=== PATIENT | female | born 2005 | race Caucasian/White ===

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

== ENCOUNTER 2023-01-25 11:44 | Outpatient (CLI) | payer MEDICAID, SELFPAY ==
--- NOTE | 2023-01-25 11:48 | XR_ITS ---
WS: [id number] Exam: XR ribs LT 2V* [id number] Date/Time of Exam: 01/25/2023 11:56 AM Reason For Exam: rib pain - posteriori No acute LEFT rib fracture or pneumothorax. No pulmonary or pleural reactive changes. The lungs are b ilaterally clear. Normal cardiomediastinal silhouette. IMPRESSION: 1. Negative LEFT rib study.
== END 2023-01-25 11:45 | disposition home or self-care (01) ==
PROVIDERS: PCP Family Medicine; Visit Provider Nurse Practitioner Family
DX: R07.81 Pleurodynia (principal)
CPT/HCPCS: 71100

== ENCOUNTER 2023-06-27 06:36 | Outpatient (CLI) | payer MEDICAID, SELFPAY ==
--- NOTE | 2023-06-27 | USCV_ITS ---
Yadi Evans Age: 17 Gender: F : 2005 Exam Date: 06/27/2023 06:41 Ordering Phys: Anika Trevizo DO Technologist: Ary Argueta [place] [facility] [place] Indication: DIZZINESS [id number] Risk Factors: Previous Vascular Surgery: Right Brachial BP: / Left Brachial BP: / Right Left Velocity (cm/s) Spectral Plaque Velocity (cm/s) Spectral Plaque Syst/Diast Broadening Syst/Diast Broadening 175.00/33.00 Prox CCA 131.00/ 27.00 193.00/36.00 Mid CCA 150.00/ 36.00 157.00/46.00 Distal CCA 104.00/ 31.00 123.00/31.00 Prox ICA 70.00 / 25.00 111.00/40.00 Mid ICA 103.00/ 32.00 101.00/42.00 Distal ICA 77.00 / 35.00 136.00 ECA 78.00 0.80 ICA/CCA 1.00 Antegrade Vertebral Antegrade 73.00/ cm/s 88.00/ 21.00 cm/s Tri Subclavian Tri 240.0 167.0 0 0 FINDINGS Comparison: none available. No significant elevation of systolic or diastolic velocities. Waveforms are normal. Minimal carotid plaque. Antegrade vertebral arteries. CONCLUSIONS Bilateral ICA stenosis less than 50%. Minimal carotid atherosclerosis. Dr. Asmita Lance DO (Electronically Signed) Final Date: 27 June 2023 07:59 S
== END 2023-06-27 06:37 | disposition home or self-care (01) ==
LOC: RAD 06:36
PROVIDERS: PCP Family Medicine; Visit Provider Family Medicine
DX: R42 Dizziness and giddiness (principal); I65.23 Occlusion and stenosis of bilateral carotid arteries
CPT/HCPCS: 93880

== ENCOUNTER 2023-07-05 07:12 | Emergency (ER) | payer MEDICAID, SELFPAY ==
[2023-07-05 07:16] VITALS: BP 155/85; PULSE 97; RESP 16; TEMP 36.7; O2SAT 99; BMI 30.1
--- NOTE | 2023-07-05 07:18 | ECG_ITS ---
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 Measurements Intervals [place] Rate: 78 P: 10 AR: 146 QRS: 50 QRSD: 88 T: 36 QT: 340 QTc: 387 Interpretive Statements SINUS RHYTHM No previous ECG available for comparison Electronically Signed On 07-06-2023 10:46:48 EMERGENCY DEPARTMENT AIDE by Denis Gale M.D. [email or web address] Cameron Groupocean [email or web address] hospitalAppliLogselect medical specialty hospital - [email or web address]/[id number] f
--- NOTE | 2023-07-05 07:25 | W.ED.CHESTPA ---
HPI - Chest Pain General: Chief Complaint: Chest Pain Stated Complaint: chest pains Time Seen by Provider: 07/05/23 07:24 Source: patient Mode of arrival: ambulatory History of Present Illness: 17-year-old female presents emergency room complaining of dizziness and central chest discomfort began after she drank a coffee energy drink. States it is worse when she takes a deep breath no significant past medical history other than anxiety and depression no history of any chronic respiratory illness that she is not on any medications she had a breast reduction a few months ago without complication. MD complaint: chest pain Onset (ago): minute(s) Prior episodes: Yes Pain location: substernal Pain radiation: none Relieving factors: nothing Exacerbating factors: exertion and inspiration Associated symptoms: Deny abdominal pain, diaphoresis, dyspnea, fever(s), leg edema, nausea, palpitations, sense of impending doom, syncope or vomiting Treatment prior to arrival: none Review of Systems Const: Denies: fever(s), chills or diaphoresis Card: Denies: chest pain, palpitations or syncope Resp: Denies: dyspnea GI: Denies: abdominal pain, nausea or vomiting : Denies: dysuria, urinary frequency or urinary urgency Musc: Denies: neck pain or back pain Skin/Breast: Denies: rash PFSH ED PFSH: Medical History Anxiety She did not do well on several anxiety meds, so just stopped. She manages this on her own. 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 Surgical History No pertinent past surgical history Family History Grandmother Breast cancer PGM--unknown age of dx Diabetes maternal grandmother Other Cancer Denies family history of Colon cancer Pancreatic cancer Ovarian cancer Hypertension Uterine cancer Thyroid disease Stroke Social History Substance/Drug Use: never Physical Exam Const: COMMON NORMALS: no acute distress GENERAL APPEARANCE: cooperative and comfortable ORIENTATION/CONSCIOUSNESS: Yes awake, Yes oriented to person, Yes oriented to place and Yes oriented to time HENMT: COMMON NORMALS: normocephalic, atraumatic and hearing grossly normal bilaterally HEAD & SCALP: normocephalic and atraumatic Resp: COMMON NORMALS: normal respiratory effort, No retractions, No use of accessory muscles and clear to auscultation bilaterally AUSCULTATION: clear to auscultation bilaterally Cardio: COMMON NORMALS: regular rate, regular rhythm and No murmurs present (Cardio) RATE: regular rate RHYTHM: regular rhythm GI: COMMON NORMALS: Soft to palpation and No hepatosplenomegaly present AUSCULTATION: Yes normoactive bowel sounds PALPATION: Yes Soft to palpation, No Tenderness to palpation present (GI), No Guarding due to palpation present (GI) and Yes No hepatosplenomegaly present Extremity: COMMON NORMALS: normal to inspection, capillary refill normal, no clubbing, cyanosis or edema, no calf tenderness and no pedal edema Neuro: SENSORIUM/ORIENTATION: Yes oriented to person, Yes oriented to place and Yes oriented to time Skin: COMMON NORMALS: no rashes or lesions noted GENERAL SKIN EXAM: no rashes or lesions noted Course Vital Signs: Vital signs: Vital Signs Temperature 98.0 F 07/05/23 07:16 Pulse Rate 97 07/05/23 07:16 Respiratory Rate 16 07/05/23 07:16 Blood Pressure 155/85 07/05/23 07:16 Pulse Oximetry 99 07/05/23 07:16 Oxygen Delivery Me thod Room Air 07/05/23 07:16 MDM - Chest Pain Medical Decision Making EKG does not show any acute changes troponin negative symptoms atypical for acute coronary syndrome. Some improvement with the GI cocktail patient an episode of hyperventilation during the workup which is resolved with redirection by the nursing staff she is also given Ativan which was helpful. Reviewed findings with is no evidence of pneumothorax pneumonia widening of the mediastinum acute coronary syndrome or pulmonary embolism. Symptoms more consistent with anxiety issues. Refer to [facility]. Medical Records I reviewed the patient's medical records. Lab Data I reviewed the patient's lab results. 07/05/23 07:25 07/05/23 07:25 Radiology Impressions Chest X-Ray 07/05/23 07:29 IMPRESSION: No acute cardiopulmonary abnormality detected on AP portable chest radiograph. Laboratory Results WBC 7.56 10^3/uL (4.5-13.0) 07/05/23 07:25 RBC 4.85 10^6/uL (3.85-5.65) 07/05/23 07:25 Hgb 12.60 g/dL (12.4-14.8) 07/05/23 07:25 Hct 39.3 % (36-47) 07/05/23 07:25 MCV 81.0 fl (85-98) L 07/05/23 07:25 MCH 26.0 pg (27-33) L 07/05/23 07:25 MCHC 32.1 g/dL (30-55) 07/05/23 07:25 RDW 15.6 % (12.1-15.1) H 07/05/23 07:25 Plt Count 223 10^3/cmm (157-399) 07/05/23 07:25 MPV 10.3 fL (7.4-10.4) 07/05/23 07:25 Neut % (Auto) 49.2 % 07/05/23 07:25 Lymph % (Auto) 35.1 % 07/05/23 07:25 [place] % (Auto) 11.9 % 07/05/23 07:25 Eos % (Auto) 2.6 % 07/05/23 07:25 Baso % (Auto) 0.8 % 07/05/23 07:25 Neut # (Auto) 3.72 10^3/uL (1.8-8.0) 07/05/23 07:25 Lymph # (Auto) 2.7 10^3/uL (1.5-6.5) 07/05/23 07:25 [place] # (Auto) 0.9 10^3/uL (0.2-0.9) 07/05/23 07:25 Eos # (Auto) 0.2 10^3/uL (0.0-0.8) 07/05/23 07:25 Baso # (Auto) 0.1 10^3/uL (0.0-0.1) 07/05/23 07:25 Nucleated RBC % (auto) 0 % 07/05/23 07:25 Nucleated RBCs # 0.0 /100WBC 07/05/23 07:25 D-Dimer 0.29 ug/mLFEU (0-0.59) 07/05/23 07:25 Sodium 137 mmol/L (136-145) 07/05/23 07:25 Potassium 4.2 mmol/L (3.5-5.1) 07/05/23 07:25 Chloride 103 mmol/L (98-107) 07/05/23 07:25 Carbon Dioxide 22 mmol/L (22-29) 07/05/23 07:25 Anion Gap 16.2 (5-19) 07/05/23 07:25 BUN 10 mg/dL (6-20) 07/05/23 07:25 Creatinine 0.6 mg/dL (0.5-0.9) 07/05/23 07:25 GFR Calculation 128.8 mL/min (90-130) 07/05/23 07:25 Glucose 102 mg/dL (65-115) 07/05/23 07:25 Calculated Osmolality 283 mOsm/kg (285-295) L 07/05/23 07:25 Calcium 8.9 mg/dL (8.5-10.5) 07/05/23 07:25 Total Bilirubin 0.2 mg/dL (0.15-1.2) 07/05/23 07:25 AST 19 U/L (0-32) 07/05/23 07:25 ALT 21 U/L (0-33) 07/05/23 07:25 Alkaline Phosphatase 132 U/L (35-105) H 07/05/23 07:25 Troponin T Baseline < 6 ng/L (0-10) 07/05/23 07:25 Total Protein 7.5 g/dL (6.6-8.7) 07/05/23 07:25 Albumin 4.2 g/dL (3.5-5.2) 07/05/23 07:25 Globulin 3.3 g/dL (1.3-4.6) 07/05/23 07:25 Lipase 30 U/L (13-60) 07/05/23 07:25 HCG, Qual Negative (Negative) 07/05/23 07:25 All radiology interpretation(s) finalized by discharge Discharge Plan Discharge Patient Disposition: Home Clinical Impression: Anxiety, Acute hyperventilation Condition: Stable Prescriptions: New hydroxyzine HCl 25 mg tablet 25 mg PO Q8H PRN (Reason: anxiety) Qty: 10 0RF No Action prednisone 20 mg tablet 40 mg PO DAILY 5 Days Qty: 10 0RF Discharge Orders: Discharge ED (Routine); Ordered 07/05/23 Ordered By: Leon Llamas Referrals: Anika Trevizo DO [Primary Care Provider] - Discharge Diet: Usual diet Discharge Activity: Increase activity as tolerated Patient Instructions: Opioid Safety, Pain Management Activity Restrictions/Additional Instructions: Thank you for choosing [facility] for your healthcare needs today. Please realize this is an emergency room and that we are providing you with a medical screening exam and this may not be complete and all inclusive of all the testing and or work up that you may need to determine your ailment or severity of your illness. It is very important that you follow up as instructed or that you return to the Emergency Department should you have concerns or if your condition changes or worsens in any way. Recommend you follow-up at [facility] for intake and to establish with a physician there who can help manage your anxiety issues. Workup today for chest pain did not show any emergent conditions. Coding Level of Care Code ED Electric Cutter Operator for Sandoval Haynes
--- NOTE | 2023-07-05 07:29 | XRR_ITS ---
PROCEDURE INFORMATION: Exam: XR Chest Exam date and time: 07/05/2023 7:36 AM Age: 17 years old Clinical indication: Cough and dyspnea; Additional info: Dyspnea/cough TECHNIQUE: Imaging protocol: Radiologic exam of the chest. Views: 1 view. COMPARISON: CR XR ribs LT 2V* [id number] 01/25/2023 11:56 AM FINDINGS: Lungs: No focal consolidation or other acute pulmonary abnormality is seen compared to 01/25/2023. Pleural spaces: No significant pleural fluid. No pneumothorax detected. Heart/Mediastinum: Heart size is stable allowing for the portable exam technique. No pulmonary vascular congestion. Bones/joints: No obvious acute abnormality. XR/XR chest 1V portable [id number] IMPRESSION: No acute cardiopulmonary abnormality detected on AP portable chest radiograph.
[2023-07-05 07:38] LABS: Basophils # 0.1 10^3/uL (0.0-0.1); Basophils % 0.8 %; Eosinophils # 0.2 10^3/uL (0.0-0.8); Eosinophils % 2.6 %; Hematocrit 39.3 % (36-47); Lymphocytes # 2.7 10^3/uL (1.5-6.5); Lymphocytes % 35.1 %; Mean Corpuscular HGB Conc 32.1 g/dL (30-55); Mean Platelet Volume 10.3 fL (7.4-10.4); Monocytes # 0.9 10^3/uL (0.2-0.9); Monocytes % 11.9 %; Neutrophils # 3.72 10^3/uL (1.8-8.0); Neutrophils % 49.2 %; Nucleated Red Blood Cells % 0 %; Platelet Count 223 10^3/cmm (157-399); Red Blood Count 4.85 10^6/uL (3.85-5.65); Red Cell Distribution Width 15.6 % (12.1-15.1); White Blood Count 7.56 10^3/uL (4.5-13.0)
[2023-07-05 07:52] LABS: D Dimer 0.29 ug/mLFEU (0-0.59)
[2023-07-05 07:54] LABS: HCG, Serum Qual Negative (Negative)
[2023-07-05 07:56] LABS: Troponin(5th) Baseline < 6 ng/L (0-10)
[2023-07-05 07:59] LABS: Alanine Aminotransferase 21 U/L (0-33); Albumin Level 4.2 g/dL (3.5-5.2); Alkaline Phosphatase 132 U/L (35-105); Anion Gap 16.2 (5-19); Aspartate Amino Transferase 19 U/L (0-32); Blood Urea Nitrogen 10 mg/dL (6-20); Calcium 8.9 mg/dL (8.5-10.5); Carbon Dioxide 22 mmol/L (22-29); Chloride 103 mmol/L (98-107); Globulin 3.3 g/dL (1.3-4.6); Glomerular Filtration Rate 128.8 mL/min (90-130); Glucose 102 mg/dL (65-115); Lipase 30 U/L (13-60); Osmolality Calculated 283 mOsm/kg (285-295); Potassium 4.2 mmol/L (3.5-5.1); Sodium 137 mmol/L (136-145); Total Bilirubin 0.2 mg/dL (0.15-1.2); Total Protein 7.5 g/dL (6.6-8.7)
[2023-07-05] MEDS: lidocaine 2% viscous 15 ML, aluminum-mag hydrox-simethicon 30 ML, sucralfate oral liq 1 GM PO (08:00)
[2023-07-05] MEDS: LORazepam 1 mg Tablet PO (08:00)
[2023-07-05] MEDS: LORazepam 2 mg/mL INJ 10 mL MDV IVP (09:07)
--- NOTE | 2023-07-05 09:29 | ECG_ITS ---
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 Measurements Intervals [place] Rate: 89 P: -1 GA: 152 QRS: 48 QRSD: 88 T: 35 QT: 343 QTc: 419 Interpretive Statements SINUS RHYTHM Compared to ECG 07/05/2023 07:18:26 No significant changes Electronically Signed On 07-06-2023 10:54:45 FORGING MACHINE OPERATOR by Denis Gale M.D. [email or web address] InternationalMcLemore Investmentsking's daughters medical center [email or web address]/store/OM/[id number]/[id number]
== END 2023-07-05 09:32 | disposition home or self-care (01) ==
PROVIDERS: Emergency Provider Family Medicine; PCP Family Medicine
DX: F41.9 Anxiety disorder, unspecified (principal); R06.4 Hyperventilation
CPT/HCPCS: 71045; 80053; 83690; 84484; 84703; 85025; 85378; 93005; 96374; 99285; J2060

== ENCOUNTER 2023-07-30 05:47 | Emergency (ER) | payer MEDICAID, SELFPAY ==
[2023-07-30 05:52] VITALS: BP 132/74; PULSE 96; RESP 15; TEMP 36.5; O2SAT 98; BMI 30.1
[2023-07-30 05:55] VITALS: BP 126/61; PULSE 93; RESP 14; O2SAT 96
--- NOTE | 2023-07-30 05:59 | ED_ITS ---
HPI - Extremity Problem General: Chief complaint: Extremity Injury, Lower Stated complaint: left ankle injury Time Seen by Provider: 07/30/23 05:55 History of Present Illness: Healthy 17-year-old female who presents the emergency room with ankle pain. She says last night she twisted her ankle. She says it hurt but she thought she was going to be okay because there was a lot of swelling. She does however this morning it still hurts so she came to the emergency room. No obvious swelling or deformity. No bruising. She says it just hurts to walk. She is neurovascularly intact. No other injuries. No chest pain. No shortness of breath. No altered mental status. No fever. No cough. Review of Systems Narrative: Constitutional symptoms: Negative except as documented in HPI. Skin symptoms: Negative except as documented in HPI. Eye symptoms: Negative except as documented in HPI. ENMT symptoms: Negative except as documented in HPI. Respiratory symptoms: Negative except as documented in HPI. Cardiovascular symptoms: Negative except as documented in HPI. Gastrointestinal symptoms: Negative except as documented in HPI. Genitourinary symptoms: Negative except as documented in HPI. Musculoskeletal symptoms: Negative except as documented in HPI. Neurologic symptoms: Negative except as documented in HPI. Psychiatric symptoms: Negative except as documented in HPI. Endocrine symptoms: Negative except as documented in HPI. [facility] ED PFSH: Medical History Anxiety She did not do well on several anxiety meds, so just stopped. She manages this on her own. No pertinent past medical history neghx: htn,dm,thyroid,dvt/pe PCP: Jay Harley NP Depression was managed with medication; came off the meds in 02/2020. Surgical History No pertinent past surgical history Family History Grandmother Breast cancer PGM--unknown age of dx Diabetes maternal grandmother Other Cancer Denies family history of Colon cancer Pancreatic cancer Ovarian cancer Hypertension Uterine cancer Thyroid disease Stroke Social History Substance/Drug Use: never Physical Exam Narrative: EXAM NARRATIVE: General: Alert, no acute distress. Skin: warm and dry Head: Normocephalic Neck: Trachea midline Eye: Extraocular movements are intact. Ears, nose, mouth and throat: Oral mucosa moist Respiratory: Respirations are non-labored Musculoskeletal: Normal ROM, no deformity, neurovascularly intact. She has pain in her left ankle with standing and movement. Neurological: Alert and oriented to person, place, time, and situation, No focal neurological deficit observed. Psychiatric: Cooperative, appropriate mood & affect. Course Vital Signs: Vital signs: Vital Signs Temperature 97.7 F 07/30/23 05:52 Pulse Rate 93 07/30/23 05:55 Respiratory Rate 14 07/30/23 05:55 Blood Pressure 126/61 07/30/23 05:55 Pulse Oximetry 96 07/30/23 05:55 Oxygen Delivery Me thod Room Air 07/30/23 05:55 MDM - Extremity (Nontraumatic) Medical Decision Making Medical decision making: Differential diagnosis including but not limited to and based on the above HPI, review of systems and physical exam: Concern for ankle strain versus fracture. Orders to evaluate differential diagnosis: Plain films of the left ankle X-ray of the left ankle: There is no fracture. No dislocation. No soft tissue swelling. This was reviewed and interpreted by myself the emergency room physician. Reexamination: Patient remained stable. Ankle still with some pain but still neurovascularly intact. No increased work of breathing. No altered mental status. XR interpretation done by ED provider, pending radiology final review Other Data - Discharged home - Discussed plan with patient. Answered any questions. - Evaluation and treatment of this problem were appropriate in the emergency setting. Discharge Plan Discharge Patient Disposition: Home Clinical Impression: Ankle sprain and strain Condition: Stable Prescriptions: No Action prednisone 20 mg tablet 40 mg PO DAILY 5 Days Qty: 10 0RF hydroxyzine HCl 25 mg tablet 25 mg PO Q8H PRN (Reason: anxiety) Qty: 10 0RF Discharge Orders: Discharge ED (Routine); Ordered 07/30/23 Ordered By: Mary Jo Blood Referrals: Anika Trevizo DO [Primary Care Provider] - (You have been screened and evaluated and felt safe for discharge. Health conditions do change or evolve sometimes and as such it is important that you follow up with your Primary Doctor to be re checked, 3-5 days is a general good time frame for follow up. You are always welcome to return to the ED for re assessment if your symptoms are worsening or you have new concerns) Discharge Diet: Usual diet Discharge Activity: Increase activity as tolerated Patient Instructions: Ankle Sprain (ED), Ice Pack Application (ED) Coding Level of Care Code ED Brand Activation Manager for Sandoval Haynes
--- NOTE | 2023-07-30 05:59 | XRR_ITS ---
PROCEDURE INFORMATION: Exam: XR Left Ankle Exam date and time: 07/30/2023 6:08 AM Age: 17 years old Clinical indication: Injury or trauma; Fall; Blunt trauma; Ankle; Left; Additional info: Traumatic ankle pain TECHNIQUE: Imaging protocol: Radiologic exam of the left ankle. Views: 3 or more views. COMPARISON: No relevant prior studies available. FINDINGS: Bones/joints: No acute bony injury or malalignment in the visualized left ankle. Soft tissues: No radiopaque foreign body. XR/XR ankle LT min 3V* [id number] IMPRESSION: No acute bony injury or malalignment in the visualized left ankle.
[2023-07-30 06:50] VITALS: BP 118/66; RESP 14; O2SAT 97
== END 2023-07-30 06:51 | disposition home or self-care (01) ==
PROVIDERS: Emergency Provider Emergency Medicine; PCP Family Medicine
DX: S93.402A Sprain of unspecified ligament of left ankle, initial encounter (principal); S96.912A Strain of unspecified muscle and tendon at ankle and foot level, left foot, initial encounter; X50.1XXA Overexertion from prolonged static or awkward postures, initial encounter
CPT/HCPCS: 73610; 99284

== ENCOUNTER 2023-10-10 14:42 | Emergency (ER) | payer MEDICAID, SELFPAY ==
[2023-10-10 14:48] VITALS: BP 139/84; PULSE 83; RESP 18; TEMP 36.6; O2SAT 97; BMI 31.5
--- NOTE | 2023-10-10 15:15 | ED_ITS ---
HPI - Extremity Problem General: Chief complaint: Extremity Injury, Upper Stated complaint: left arm pain, left side head numb Time Seen by Provider: 10/10/23 14:54 Source: patient Mode of arrival: ambulatory Limitations: no limitations History of Present Illness: Patient is a 18-year-old female presents to ED today with a complaint of a left upper extremity injury that she sustained while lifting. Patient states just earlier today she was lifting a heavy door when she felt something immediately pull in her left arm/left shoulder. She states since that time her arm and neck have felt foggy . Patient states her pain is worse with movement of the shoulder. She feels like she may have pulled something . Patient denies numbness, tingling, loss of sensation. She is not having any acute neurologic deficits. She has not noticed any swelling to the extremity. MD Complaint: extremity pain and joint pain Onset (ago): hour(s) Pain Consistency: constant Location: left and upper extremity Radiation: none Exacerbating factors: range of motion Associated symptoms: Reports no associated symptoms; Deny rash Review of Systems Eyes: Denies: change in vision ENMT: Denies: tinnitus GI: Denies: nausea or vomiting Musc: Reports: neck pain, extremity pain and joint pain; Denies: back pain, extremity swelling, joint swelling, joint redness, joint warmth or limited range of motion Skin/Breast: Denies: rash Neuro: Denies: numbness in extremities, weakness in extremities, sensory changes, dizziness or Slurred speech present [facility] ED PFSH: Medical History Anxiety She did not do well on several anxiety meds, so just stopped. She manages this on her own. No pertinent past medical history neghx: htn,dm,thyroid,dvt/pe PCP: Jay Harley NP Depression was managed with medication; came off the meds in 02/2020. Surgical History No pertinent past surgical history Family History Grandmother Breast cancer PGM--unknown age of dx Diabetes maternal grandmother Other Cancer Denies family history of Colon cancer Pancreatic cancer Ovarian cancer Hypertension Uterine cancer Thyroid disease Stroke Social History Substance/Drug Use: never Physical Exam Const: COMMON NORMALS: no acute distress, patient oriented x3, no limitations, healthy appearing, alert and well nourished ORIENTATION/CONSCIOUSNESS: Yes awake, Yes oriented to person, Yes oriented to place and Yes oriented to time HENMT: COMMON NORMALS: normocephalic and atraumatic HEAD & SCALP: normal to inspection, normocephalic and atraumatic FACE & SINUS: normal facial exam and face symmetric MOUTH: tongue normal Eye: COMMON NORMALS: Equal, round and reactive pupils present and EOMs intact bilaterally GENERAL EYE: appearance normal, both eyes and all related structures and normal light reflex PUPIL: Yes Equal, round and reactive pupils present DIRECT OPHTHALMOSCOPY: Yes normal light reflex Neck/C-Spine: COMMON NORMALS: full ROM, no lymphadenopathy, no meningeal signs and No carotid bruits GENERAL: Yes normal visual inspection CERVICAL SPINE: Yes cervical ROM normal, No Cervical spine tenderness, No step off deformity and Yes Trapezius muscle tenderness left Extremity: COMMON NORMALS: full ROM, capillary refill normal, no joint enlargement and no clubbing, cyanosis or edema GENERAL: Yes normal exam except as noted LEFT UPPER EXTREMITY: Yes shoulder joint (pain reproducible with certain movements of shoulder and palpation) Left shoulder joint: Yes inspection (normal gross inspection), Yes palpation (TTP posterior shoulder; trapezius muscle tenderness), Yes ROM (normal) and Yes neurovascular exam (normal) Neuro: COMMON NORMALS: patient oriented x3, moves all extremities, no focal motor deficits and no sensory deficits noted SENSORIUM/ORIENTATION: Yes alert, Yes oriented to person, Yes oriented to place and Yes oriented to time MENINGEAL SIGNS: Yes no meningeal signs Course Vital Signs: Vital signs: Vital Signs Temperature 98 F 10/10/23 14:48 Pulse Rate 83 10/10/23 14:48 Respiratory Rate 18 10/10/23 14:48 Blood Pressure 139/84 10/10/23 14:48 Pulse Oximetry 97 10/10/23 14:48 Oxygen Delivery Me thod Room Air 10/10/23 14:48 MDM - Extremity (Nontraumatic) Medical Decision Making Patient is a 18-year-old female here with complaints of left neck and shoulder pain following lifting a heavy door. Her pain is reproducible with palpation certain areas in her shoulder as well as certain movements. She does maintain full range of motion of the shoulder. I do not have any concern at this time for bony injury. Extremity is neurovascularly intact. I do not have any concern for other ominous etiology such as a cerebral/cervical dissection. She has no Arie syndrome, no cranial nerve palsies, no pulsatile tinnitus, no other neurologic deficits. Patient be treated with anti-inflammatories as well as other conservative therapies at home such as ice/heat. Recommend follow-up with primary care in 1 to 2 weeks if symptoms do not seem to be improving. Return ED precautions given. No radiology studies performed this visit Discharge Plan Discharge Patient Disposition: Home Clinical Impression: Muscle strain of left shoulder region Qualifiers: Encounter type: initial encounter Qualified Code(s): S46.912A - Strain of unspecified muscle, fascia and tendon at shoulder and upper arm level, left arm, initial encounter Condition: Stable Prescriptions: New ibuprofen 800 mg tablet 800 mg PO Q8H PRN (Reason: pain) Qty: 20 0RF No Action sertraline [Zoloft] 50 mg tablet 50 mg PO DAILY ondansetron 4 mg tablet,disintegrating 4 mg PO Q6H PRN (Reason: nausea and vomiting) Qty: 10 0RF hydroxyzine HCl 25 mg tablet 25 mg PO Q8H PRN (Reason: anxiety) Qty: 10 0RF Discharge Orders: Discharge ED (Routine); Ordered 10/10/23 Ordered By: Sammi Cornell Referrals: Anika Trevizo DO [Primary Care Provider] - Patient Instructions: Muscle Strain (DC) Coding Level of Care Code ED Tube Builder Airplane for Sandoval Haynes
== END 2023-10-10 15:41 | disposition home or self-care (01) ==
PROVIDERS: Emergency Provider Physician Assistant; PCP Family Medicine
DX: S46.912A Strain of unspecified muscle, fascia and tendon at shoulder and upper arm level, left arm, initial encounter (principal); X50.0XXA Overexertion from strenuous movement or load, initial encounter
CPT/HCPCS: 99281

== ENCOUNTER → 2023-11-08 10:23 | Outpatient (BNVA) | payer OTHER, MEDICAID, SELFPAY | PROVIDERS: PCP Family Medicine; Visit Provider Registered Nurse Neonatal Intensive Care | DX: J02.9 Acute pharyngitis, unspecified (principal); H66.003 Acute suppurative otitis media without spontaneous rupture of ear drum, bilateral | CPT/HCPCS: 87880 ==

== ENCOUNTER → 2024-02-24 18:05 | Outpatient (BNVA) | payer MEDICAID, SELFPAY | PROVIDERS: PCP Family Medicine; Visit Provider Registered Nurse Neonatal Intensive Care | DX: R39.9 Unspecified symptoms and signs involving the genitourinary system (principal) | CPT/HCPCS: 81000 ==

== ENCOUNTER 2024-04-05 12:37 | Outpatient (CLI) | payer MEDICAID, SELFPAY ==
--- NOTE | 2024-04-05 12:52 | XR_ITS ---
WS: [id number] Exam: XR lumbar spine 2-3V* [id number] Date/Time of Exam: 04/05/2024 12:54 PM Reason For Exam: CHRONIC LUMBAR BACK PAIN; SCIATICA No fracture. Disc spaces are preserved. Posterior elements are intact. Slight levoscoliosis that may be positional. XR/XR lumbar spine 2-3V* [id number] IMPRESSION: 1. Normal lumbar spine study.
== END 2024-04-05 12:38 | disposition home or self-care (01) ==
PROVIDERS: PCP Family Medicine; Visit Provider Nurse Practitioner Family
DX: M54.59 Other low back pain (principal)
CPT/HCPCS: 72100

== ENCOUNTER → 2024-04-20 12:28 | Outpatient (BNVA) | payer MEDICAID, SELFPAY | PROVIDERS: PCP Family Medicine; Visit Provider Registered Nurse Neonatal Intensive Care | DX: R05.9 Cough, unspecified (principal); J02.9 Acute pharyngitis, unspecified | CPT/HCPCS: 87071; 87400; 87426; 87880 ==

== ENCOUNTER 2024-05-01 16:27 | Emergency (ER) | payer MEDICAID, SELFPAY ==
[2024-05-01 16:36] VITALS: BMI 34.8
[2024-05-01 17:59] LABS: Basophils # 0.1 10^3/uL (0.0-0.1); Basophils % 0.8 %; Eosinophils # 0.3 10^3/uL (0.0-0.8); Eosinophils % 2.8 %; Hematocrit 42.6 % (36-47); Lymphocytes # 3.1 10^3/uL (1.5-6.5); Lymphocytes % 28.3 %; Mean Corpuscular HGB Conc 31.9 g/dL (30-55); Mean Corpuscular Volume 84.7 fl (85-98); Mean Platelet Volume 10.4 fL (7.4-10.4); Monocytes # 1.1 10^3/uL (0.2-0.9); Monocytes % 10.1 %; Neutrophils # 6.24 10^3/uL (1.8-8.0); Neutrophils % 57.6 %; Nucleated Red Blood Cells % 0 %; Platelet Count 258 10^3/cmm (157-399); Red Blood Count 5.03 10^6/uL (3.85-5.65); Red Cell Distribution Width 14.9 % (12.1-15.1); White Blood Count 10.84 10^3/uL (4.5-13.0)
[2024-05-01 18:00] LABS: Bilirubin Urine Negative (Negative); Blood Urine Negative (Negative); Glucose Urine UA Negative (Normal); Ketones Urine Negative (Negative); Leukocyte Esterase Urine Negative (Negative); Nitrate Urine Negative (Negative); Protein Urine Trace (Negative); Specific Gravity, Urine 1.024 (1.005-1.030); Urine Appearance Cloudy (CLEAR); Urine Color Yellow (Yellow); pH Urine 8.5 (5-7)
[2024-05-01 18:03] LABS: Add Urine Microscopic? YES; Bacteria Urine 1+ /hpf; Hyaline Casts Urine 0-4 /lpf
[2024-05-01 18:14] LABS: Alanine Aminotransferase 29 U/L (0-33); Albumin Level 4.1 g/dL (3.5-5.2); Alkaline Phosphatase 137 U/L (35-105); Anion Gap 14.9 (5-19); Aspartate Amino Transferase 23 U/L (0-32); Blood Urea Nitrogen 9 mg/dL (6-20); Calcium 9.2 mg/dL (8.5-10.5); Carbon Dioxide 22 mmol/L (22-29); Chloride 104 mmol/L (98-107); Creatinine Clr Calc Pharmacy 241.3694; Globulin 3.7 g/dL (1.3-4.6); Glomerular Filtration Rate 157.3 mL/min (90-130); Glucose 85 mg/dL (65-115); Lipase 23 U/L (13-60); Osmolality Calculated 282 mOsm/kg (285-295); Potassium 3.9 mmol/L (3.5-5.1); Sodium 137 mmol/L (136-145); Total Bilirubin 0.2 mg/dL (0.15-1.2); Total Protein 7.8 g/dL (6.6-8.7)
[2024-05-01 18:25] LABS: HCG, Serum Qual Negative (Negative)
--- NOTE | 2024-05-01 19:13 | CTR_ITS ---
PROCEDURE INFORMATION: Exam: CT Abdomen And Pelvis With Contrast Exam date and time: 05/01/2024 7:43 PM Age: 18 years old Clinical indication: Abdominal pain; TECHNIQUE: Imaging protocol: Computed tomography of the abdomen and pelvis with contrast. Radiation optimization: All CT scans at this facility use at least one of these dose optimization techniques: automated exposure control; mA and/or kV adjustment per patient size (includes targeted exams where dose is matched to clinical indication); or iterative reconstruction. Contrast material: OMNI 350; Contrast volume: 100 ml; Contrast route: INTRAVENOUS (IV); COMPARISON: CT abdomen pelvis w con* [id number] 04/27/2020 11:29 AM RADIATION DOSE METRICS: Total DLP (mGy-cm): 1075.07 FINDINGS: Liver: There is a diffuse decrease in hepatic parenchymal density, consistent with fatty infiltration. Gallbladder and biliary ducts: Normal. No calcified stones. No ductal dilation. Pancreas: Normal. No ductal dilation. Spleen: Normal. No splenomegaly. Adrenal glands: Normal. No mass. Kidneys and ureters: Normal. No hydronephrosis. Stomach and bowel: There is mucosal thickening of the terminal ileum with minimal haziness in the adjacent mesenteric fat, consistent with a nonspecific enteritis. Appendix: A normal appendix is identified. Intraperitoneal space: See Stomach and bowel finding. Vasculature: Unremarkable. No abdominal aortic aneurysm. Lymph nodes: Unremarkable. No enlarged lymph nodes. Urinary bladder: Unremarkable as visualized. Reproductive: Unremarkable as visualized. Bones/joints: Unremarkable. No acute fracture. Soft tissues: Unremarkable. CT/CT abdomen pelvis w con* [id number] IMPRESSION: Findings as stated above are consistent with a nonspecific enteritis involving the terminal ileum.
--- NOTE | 2024-05-01 19:15 | ED_ITS ---
HPI - Abdominal Pain 2 General: Chief Complaint: Abdominal Pain Stated Complaint: Right side abd pain, feels like passing out Time Seen by Provider: 05/01/24 19:04 Source: patient Mode of arrival: ambulatory Limitations: no limitations History of Present Illness: 18-year-old female states been having ri ght lower quadrant pain throughout the day states radiates to right flank states pain is worse with movement and palpation she rates the pain a 5 out of 10 currently it is improved with rest she denies any dysuria or vaginal bleeding no previous abdominal surgeries has had a history of ovarian cyst in the past. Associated Symptoms: Denies chills, diarrhea, dysuria, fever(s), nausea and vomiting Related Data Date of Last Menstrual Period: 04/17/24 Home Medications Medication Instructions Recorded Confirmed sertraline 50 mg tablet (Zoloft) 50 mg PO DAILY 08/20/23 04/20/24 Previous Rx's Medication Instructions Recorded hydrocodone 5 mg-acetaminophen 325 1 tab PO Q6H PRN pain #14 tabs 05/01/24 mg tablet ondansetron 4 mg disintegrating 4 mg PO Q6H PRN nausea and 05/01/24 tablet vomiting #14 tabs Allergies Allergy/AdvReac Type Severity Reaction Status Date / Time No Known Allergies Allergy Verified 05/01/24 16:39 Review of Systems 2 Const: Denies: fever(s), chills, body aches or change in appetite ENMT: Denies: throat pain or dental pain Card: Denies: chest pain Resp: Denies: dyspnea GI: Reports: abdominal pain; Denies: nausea, vomiting or diarrhea : Denies: dysuria Musc: Denies: neck pain or back pain Skin/Breast: Denies: rash Neuro: Denies: headache(s) PFSH ED 2 PFSH: Medical History Anxiety She did not do well on several anxiety meds, so just stopped. She manages this on her own. No pertinent past medical history neghx: htn,dm,thyroid,dvt/pe PCP: Jay Harley NP Depression was managed with medication; came off the meds in 02/2020. Surgical History No pertinent past surgical history Family History Grandmother Breast cancer PGM--unknown age of dx Diabetes maternal grandmother Other Cancer Denies family history of Colon cancer Pancreatic cancer Ovarian cancer Hypertension Uterine cancer Thyroid disease Stroke Social History Smoking and tobacco/nicotine status: never used tobacco/nicotine Substance/Drug Use: never Female Reproductive History: Date of last menstrual period: 04/17/24 Physical Exam 2 Const: COMMON NORMALS: no acute distress, patient oriented x3 and healthy appearing HENMT: COMMON NORMALS: normocephalic and atraumatic HEAD & SCALP: n ormocephalic and atraumatic Neck/C-Spine: COMMON NORMALS: full ROM and supple Chest: COMMONS NORMALS: normal inspection of the chest Resp: COMMON NORMALS: normal respiratory effort Cardio: COMMON NORMALS: regular rate, regular rhythm and No murmurs present (Cardio) RATE: regular rate RHYTHM: regular rhythm GI: COMMON NORMALS: Normal to inspection, nondistended, normoactive bowel sounds present, Soft to palpation and no masses PALPATION: Yes Soft to palpation and Yes Tenderness to palpation present (GI) Details: RLQ Extremity: COMMON NORMALS: normal to inspection and full ROM Neuro: COMMON NORMALS: patient oriented x3, moves all extremities and no focal motor deficits Psych: COMMON NORMALS: mental status grossly normal, Normal thought process present and cooperative THOUGHT PROCESS: Normal thought process present Skin: COMMON NORMALS: no rashes or lesions noted and no wounds GENERAL SKIN EXAM: no rashes or lesions noted Course 2 Vital Signs: Vital signs: Vital Signs Pulse Rate 86 05/01/24 20:30 Respiratory Rate 18 05/01/24 20:05 Blood Pressure 137/89 05/01/24 20:30 Pulse Oximetry 98 05/01/24 20:30 Oxygen Delivery Me thod Room Air 05/01/24 20:30 MDM - Abdominal Pain Medical Decision Making Patient presents for abdominal pain CT shows an enteritis no signs appendicitis blood works normal pain here is improved abdominal exam discharge benign she is stable for discharge we will prescribe her nausea medicine pain meds she is follow-up with PCP. Medical Records I reviewed the patient's medical records. Lab Data I reviewed the patient's lab results. 05/01/24 17:36 05/01/24 17:36 Labs/Radiology: Radiology Impressions Abdomen/Pelvis CT 05/01/24 19:13 IMPRESSION: Findings as stated above are consistent with a nonspecific enteritis involving the terminal ileum. Laboratory Results WBC 10.84 10^3/uL (4.5-13.0) 05/01/24 17:36 RBC 5.03 10^6/uL (3.85-5.65) 05/01/24 17:36 Hgb 13.60 g/dL (12.4-14.8) 05/01/24 17:36 Hct 42.6 % (36-47) 05/01/24 17:36 MCV 84.7 fl (85-98) L 05/01/24 17:36 MCH 27.0 pg (27-33) 05/01/24 17:36 MCHC 31.9 g/dL (30-55) 05/01/24 17:36 RDW 14.9 % (12.1-15.1) 05/01/24 17:36 Plt Count 258 10^3/cmm (157-399) 05/01/24 17:36 MPV 10.4 fL (7.4-10.4) 05/01/24 17:36 Neut % (Auto) 57.6 % 05/01/24 17:36 Lymph % (Auto) 28.3 % 05/01/24 17:36 [place] % (Auto) 10.1 % 05/01/24 17:36 Eos % (Auto) 2.8 % 05/01/24 17:36 Baso % (Auto) 0.8 % 05/01/24 17:36 Neut # (Auto) 6.24 10^3/uL (1.8-8.0) 05/01/24 17:36 Lymph # (Auto) 3.1 10^3/uL (1.5-6.5) 05/01/24 17:36 [place] # (Auto) 1.1 10^3/uL (0.2-0.9) H 05/01/24 17:36 Eos # (Auto) 0.3 10^3/uL (0.0-0.8) 05/01/24 17:36 Baso # (Auto) 0.1 10^3/uL (0.0-0.1) 05/01/24 17:36 Nucleated RBC % (auto) 0 % 05/01/24 17:36 Nucleated RBCs # 0.0 /100WBC 05/01/24 17:36 Sodium 137 mmol/L (136-145) 05/01/24 17:36 Potassium 3.9 mmol/L (3.5-5.1) 05/01/24 17:36 Chloride 104 mmol/L (98-107) 05/01/24 17:36 Carbon Dioxide 22 mmol/L (22-29) 05/01/24 17:36 Anion Gap 14.9 (5-19) 05/01/24 17:36 BUN 9 mg/dL (6-20) 05/01/24 17:36 Creatinine 0.5 mg/dL (0.5-0.9) 05/01/24 17:36 GFR Calculation 157.3 mL/min (90-130) H 05/01/24 17:36 Glucose 85 mg/dL (65-115) 05/01/24 17:36 Calculated Osmolality 282 mOsm/kg (285-295) L 05/01/24 17:36 Calcium 9.2 mg/dL (8.5-10.5) 05/01/24 17:36 Total Bilirubin 0.2 mg/dL (0.15-1.2) 05/01/24 17:36 AST 23 U/L (0-32) 05/01/24 17:36 ALT 29 U/L (0-33) 05/01/24 17:36 Alkaline Phosphatase 137 U/L (35-105) H 05/01/24 17:36 Total Protein 7.8 g/dL (6.6-8.7) 05/01/24 17:36 Albumin 4.1 g/dL (3.5-5.2) 05/01/24 17:36 Globulin 3.7 g/dL (1.3-4.6) 05/01/24 17:36 Lipase 23 U/L (13-60) 05/01/24 17:36 HCG, Qual Negative (Negative) 05/01/24 17:36 Urine Color Yellow (Yellow) 05/01/24 17:30 Urine Appearance Cloudy (CLEAR) A 05/01/24 17:30 Urine pH 8.5 (5-7) A 05/01/24 17:30 Ur Specific [place] 1.024 (1.005-1.030) 05/01/24 17:30 Urine Protein Trace (Negative) A 05/01/24 17:30 Urine Glucose (UA) Negative (Normal) 05/01/24 17:30 Urine Ketones Negative (Negative) 05/01/24 17:30 Urine Blood Negative (Negative) 05/01/24 17:30 Urine Nitrate Negative (Negative) 05/01/24 17:30 Urine Bilirubin Negative (Negative) 05/01/24 17:30 Urine Urobilinogen 1.0 mg/dL (Negative) 05/01/24 17:30 Ur Leukocyte Esterase Negative (Negative) 05/01/24 17:30 Urine RBC 3-5 /hpf (0-2) 05/01/24 17:30 Urine WBC 6-10 /hpf (0-5) 05/01/24 17:30 Ur Squamous Epith Cells 6-10 /hpf (0-5) 05/01/24 17:30 Amorphous Sediment Not Reportable 05/01/24 17:30 Urine Bacteria 1+ /hpf (NONE) H 05/01/24 17:30 Hyaline Casts 0-4 /lpf H 05/01/24 17:30 All radiology interpretation(s) finalized by discharge Discharge Plan Discharge Patient Disposition: Home Clinical Impression: Abdominal pain Condition: Stable Prescriptions: New hydrocodone-acetaminophen 5-325 mg tablet 1 tab PO Q6H PRN (Reason: pain) Qty: 14 0RF ondansetron 4 mg tablet,disintegrating 4 mg PO Q6H PRN (Reason: nausea and vomiting) Qty: 14 0RF No Action sertraline [Zoloft] 50 mg tablet 50 mg PO DAILY Discharge Orders: Discharge ED (Routine); Ordered 05/01/24 Ordered By: Sonali Bowens Referrals: Anika Trevizo DO [Primary Care Provider] - 4-7 days Discharge Diet: Advance as tolerated Discharge Activity: Resume usual activity Patient Instructions: Abdominal Pain (ED), Enteritis (ED) Coding Level of Care Code 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
[2024-05-01] MEDS: iohexol 350 mg/mL 500 mL Btl (per mL) IV (19:47)
[2024-05-01] MEDS: ondansetron 2 mg/ML SDV 2 mL 4 MG IVP (19:57)
[2024-05-01 20:00] VITALS: BP 127/80; PULSE 90; O2SAT 99
[2024-05-01 20:05] VITALS: RESP 18; O2SAT 98
[2024-05-01] MEDS: morphine 4 mg/mL SDV 1 mL IVP (20:05)
[2024-05-01 20:07] VITALS: BP 132/87; PULSE 88; O2SAT 99
[2024-05-01 20:30] VITALS: BP 137/89; PULSE 86; O2SAT 98
[2024-05-01 21:23] VITALS: BP 137/89; PULSE 93; RESP 18; O2SAT 97
== END 2024-05-01 21:25 | disposition home or self-care (01) ==
PROVIDERS: Emergency Provider Emergency Medicine; PCP Family Medicine
DX: R10.31 Right lower quadrant pain (principal)
CPT/HCPCS: 36415; 74177; 80053; 81001; 83690; 84703; 85025; 96374; 96375; 99285; J2270; J2405

== ENCOUNTER 2024-05-28 11:35 | Outpatient (RCR) | payer MEDICAID, SELFPAY | END 2024-06-14 23:59 | disposition home or self-care (01) | LOC: SPT 11:35 | PROVIDERS: Visit Provider Nurse Practitioner Family | DX: M54.50 Low back pain, unspecified (principal); G89.29 Other chronic pain | CPT/HCPCS: 97110; 97161 ==

== ENCOUNTER 2024-05-31 20:37 | Emergency (ER) | payer MEDICAID, SELFPAY ==
[2024-05-31 20:44] VITALS: BP 123/81; PULSE 62; RESP 16; TEMP 36.6; O2SAT 97; BMI 33.0
[2024-05-31 21:40] LABS: Basophils # 0.1 10^3/uL (0.0-0.1); Eosinophils # 0.2 10^3/uL (0.0-0.8); Eosinophils % 2.5 %; Hematocrit 43.6 % (36-47); Lymphocytes % 36.7 %; Mean Corpuscular Hemoglobin 27.2 pg (27-33); Mean Corpuscular Volume 87.7 fl (85-98); Mean Platelet Volume 11.1 fL (7.4-10.4); Monocytes # 0.6 10^3/uL (0.2-0.9); Monocytes % 7.4 %; Neutrophils # 4.24 10^3/uL (1.8-8.0); Neutrophils % 52.2 %; Nucleated Red Blood Cells % 0 %; Platelet Count 215 10^3/cmm (157-399); Red Blood Count 4.97 10^6/uL (3.85-5.65); Red Cell Distribution Width 14.6 % (12.1-15.1); White Blood Count 8.12 10^3/uL (4.5-13.0)
[2024-05-31 22:29] LABS: Alanine Aminotransferase 44 U/L (0-33); Albumin Level 4.4 g/dL (3.5-5.2); Alkaline Phosphatase 139 U/L (35-105); Anion Gap 19.9 (5-19); Aspartate Amino Transferase 33 U/L (0-32); Blood Urea Nitrogen 15 mg/dL (6-20); Calcium 9.7 mg/dL (8.5-10.5); Carbon Dioxide 19 mmol/L (22-29); Chloride 104 mmol/L (98-107); Creatinine Clr Calc Pharmacy 195.5718; Globulin 3.6 g/dL (1.3-4.6); Glomerular Filtration Rate 127.5 mL/min (90-130); Glucose 89 mg/dL (65-115); Osmolality Calculated 288 mOsm/kg (285-295); Potassium 3.9 mmol/L (3.5-5.1); Sodium 139 mmol/L (136-145); Total Bilirubin 0.2 mg/dL (0.15-1.2)
--- NOTE | 2024-06-01 00:25 | ED_ITS ---
HPI - GI Bleed 2 General: Chief complaint: GI Bleed Stated complaint: severe rectal bleeding Time Seen by Provider: 06/01/24 00:02 History of Present Illness: Patient presents to the ER with complaints of rectal bleeding, dizziness and tingling. Says he was seen a month ago and diagnosed with enteritis. She had 1 episode of rectal bleeding since then it was very mild. Patient today had another after episode of rectal bleeding he says it was more moderate in nature this was bleeding bright red blood on her toilet paper as well as in her stool. There was no if no black tarry blood. Patient did not have any abdominal pain during this but she did have some outer and internal rectal type pain. Patient is not on any type of anticoagulation has never had any bleeding problems in the past. Related Data Home Medications Medication Instructions Recorded Confirmed sertraline 50 mg tablet (Zoloft) 50 mg PO DAILY 08/20/23 04/20/24 Previous Rx's Medication Instructions Recorded hydrocodone 5 mg-acetaminophen 325 1 tab PO Q6H PRN pain #14 tabs 05/01/24 mg tablet ondansetron 4 mg disintegrating 4 mg PO Q6H PRN nausea and 05/01/24 tablet vomiting #14 tabs Allergies Allergy/AdvReac Type Severity Reaction Status Date / Time No Known Allergies Allergy Verified 05/01/24 16:39 Review of Systems 2 General: Reports: 10 or more systems reviewed and unremarkable except in HPI and below PFSH ED 2 PFSH: Medical History Anxiety She did not do well on several anxiety meds, so just stopped. She manages this on her own. No pertinent past medical history neghx: htn,dm,thyroid,dvt/pe PCP: Jay Harley NP Depression was managed with medication; came off the meds in 02/2020. Surgical History No pertinent past surgical history Family History Grandmother Breast cancer PGM--unknown age of dx Diabetes maternal grandmother Other Cancer Denies family history of Colon cancer Pancreatic cancer Ovarian cancer Hypertension Uterine cancer Thyroid disease Stroke Social History (Reviewed 06/01/24 @ 00:26 by BRADFORD Rivers Smoking and tobacco/nicotine status: never used tobacco/nicotine Substance/Drug Use: never Female Reproductive History: Date of last menstrual period: 05/17/24 Physical Exam 2 Const: COMMON NORMALS: no acute distress, average body habitus, patient oriented x3, no limitations, healthy appearing, alert and well nourished HENMT: COMMON NORMALS: normocephalic, atraumatic, hearing grossly normal bilaterally, external ears normal, Normal external nose present and moist oral mucous membranes HEAD & SCALP: normocephalic and atraumatic NOSE: Normal external nose present EXTERNAL EAR: Yes external ears normal Eye: COMMON NORMALS: Equal, round and reactive pupils present, EOMs intact bilaterally, conjunctivae normal and no scleral icterus CONJUNCTIVA: Yes conjunctivae normal PUPIL: Yes Equal, round and reactive pupils present Neck/C-Spine: COMMON NORMALS: full ROM, no lymphadenopathy, supple, no meningeal signs, no JVD and Thyroid normal THYROID: Thyroid normal Chest: COMMONS NORMALS: normal inspection of the chest and normal palpation of entire chest wall Resp: COMMON NORMALS: normal respiratory effort, No retractions, No use of accessory muscles and clear to auscultation bilaterally AUSCULTATION: clear to auscultation bilaterally Cardio: COMMON NORMALS: no JVD, regular rate, regular rhythm, S1 normal heart sound present, S2 normal heart sound present, No gallops present (Cardio), No clicks present (Cardio), No murmurs present (Cardio) and No rub (Cardio) R ATE: regular rate RHYTHM: regular rhythm HEART SOUNDS: S1 normal heart sound present and S2 normal heart sound present GI: COMMON NORMALS: Normal to inspection, nondistended, normoactive bowel sounds present, Soft to palpation, non-tender, No hepatosplenomegaly present and no masses PALPATION: Yes Soft to palpation and Yes No hepatosplenomegaly present Neuro: COMMON NORMALS: patient oriented x3 SENSORIUM/ORIENTATION: Yes alert MENINGEAL SIGNS: Yes no meningeal signs Course 2 Vital Signs: Vital signs: Vital Signs Temperature 97.8 F 05/31/24 20:44 Pulse Rate 70 06/01/24 00:46 Respiratory Rate 18 06/01/24 00:46 Blood Pressure 126/74 06/01/24 00:46 Pulse Oximetry 98 06/01/24 00:46 Oxygen Delivery Me thod Room Air 06/01/24 00:30 MDM - GI Bleed Medical Decision Making Lab work was obtained which revealed a hemoglobin of 13.5, otherwise unremarkable, picture was shown to me of the toilet paper but had a minimal amount of bright red blood on it. Patient is sitting there comfortably no acute distress. Patient is not anemic or very minimally symptomatic at this time. Patient referred back to her family practice physician may benefit from a GI referral and/or colonoscopy. Lab Data 05/31/24 21:17 05/31/24 21:17 Laboratory Results WBC 8.12 10^3/uL (4.5-13.0) 05/31/24 21: RBC 4.97 10^6/uL (3.85-5.65) 05/31/24 21: Hgb 13.50 g/dL (12.4-14.8) 05/31/24 21:17 Hct 43.6 % (36-47) 05/31/24 21: MCV 87.7 fl (85-98) 05/31/24 21:17 MCH 27.2 pg (27-33) 05/31/24 21: MCHC 31.0 g/dL (30-55) 05/31/24 21: RDW 14.6 % (12.1-15.1) 05/31/24 21:17 Plt Count 215 10^3/cmm (157-399) 05/31/24 21:17 MPV 11.1 fL (7.4-10.4) H 05/31/24 21:17 Neut % (Auto) 52.2 % 05/31/24 21:17 Lymph % (Auto) 36.7 % 05/31/24 21:17 [place] % (Auto) 7.4 % 05/31/24 21: Eos % (Auto) 2.5 % 05/31/24 21: Baso % (Auto) 1.0 % 05/31/24: Neut # (Auto) 4.24 10^3/uL (1.8-8.0) 05/31/24 21:17 Lymph # (Auto) 3.0 10^3/uL (1.5-6.5) 05/31/24 21:17 [place] # (Auto) 0.6 10^3/uL (0.2-0.9) 05/31/24 21:17 Eos # (Auto) 0.2 10^3/uL (0.0-0.8) 05/31/24 21:17 Baso # (Auto) 0.1 10^3/uL (0.0-0.1) 05/31/24 21:17 Nucleated RBC % (auto) 0 % 05/31/24 21:17 Nucleated RBCs # 0.0 /100WBC 05/31/24 21:17 Sodium 139 mmol/L (136-145) 05/31/24 21:17 Potassium 3.9 mmol/L (3.5-5.1) 05/31/24 21:17 Chloride 104 mmol/L (98-107) 05/31/24 21:17 Carbon Dioxide 19 mmol/L (22-29) L 05/31/24 21:17 Anion Gap 19.9 (5-19) H 05/31/24 21:17 BUN 15 mg/dL (6-20) 05/31/24 21:17 Creatinine 0.6 mg/dL (0.5-0.9) 05/31/24 21:17 GFR Calculation 127.5 mL/min (90-130) 05/31/24 21:17 Glucose 89 mg/dL (65-115) 05/31/24 21:17 Calculated Osmolality 288 mOsm/kg (285-295) 05/31/24 21:17 Calcium 9.7 mg/dL (8.5-10.5) 05/31/24 21:17 Total Bilirubin 0.2 mg/dL (0.15-1.2) 05/31/24 21:17 AST 33 U/L (0-32) H 05/31/24 21:17 ALT 44 U/L (0-33) H 05/31/24 21:17 Alkaline Phosphatase 139 U/L (35-105) H 05/31/24 21:17 Total Protein 8.0 g/dL (6.6-8.7) 05/31/24 21:17 Albumin 4.4 g/dL (3.5-5.2) 05/31/24 21:17 Globulin 3.6 g/dL (1.3-4.6) 05/31/24 21:17 All radiology interpretation(s) finalized by discharge Discharge Plan Discharge Patient Disposition: Home Clinical Impression: Bright red rectal bleeding Condition: Stable Prescriptions: No Action sertraline [Zoloft] 50 mg tablet 50 mg PO DAILY hydrocodone-acetaminophen 5-325 mg tablet 1 tab PO Q6H PRN (Reason: pain) Qty: 14 0RF ondansetron 4 mg tablet,disintegrating 4 mg PO Q6H PRN (Reason: nausea and vomiting) Qty: 14 0RF Discharge Orders: Discharge ED (Routine); Ordered 06/01/24 Ordered By: Andrea Peters Referrals: Anika Clarke MD [Primary Care Provider] - Patient Instructions: Rectal Bleeding (ED) Activity Restrictions/Additional Instructions: Your evaluation ER included physical exam and lab work, all of which was essentially benign. You are not anemic. Please follow-up with your family practice physician for further evaluation testing. This may include referral to GI doctor and/or colonoscopy. If your symptoms worsen please feel free to return to the ER. Thank you for choosing [facility] for your healthcare needs today. Please realize that you were seen in the emergency department and that we are providing you with an emergency medical screening exam and this may not be a complete and all exclusive of all testing and/or medical workup we may need to determine your element or severity of your illness. It is very important that you follow-up as instructed with your primary care provider or specialist for the additional evaluation and to discuss your medical treatment plan. You may return to the emergency department should you have concerns or if your condition changes or worsens in any way. Coding Level of Care Code ED Outreach Specialist for [facility]
[2024-06-01 00:30] VITALS: BP 117/73; PULSE 68; RESP 16; O2SAT 98
[2024-06-01 00:46] VITALS: BP 126/74; PULSE 70; RESP 18; O2SAT 98
== END 2024-06-01 00:53 | disposition home or self-care (01) ==
PROVIDERS: Emergency Provider Emergency Medicine; PCP Pediatrics
DX: K62.5 Hemorrhage of anus and rectum (principal)
CPT/HCPCS: 36415; 80053; 85025; 99283

== ENCOUNTER 2024-06-15 06:30 | Outpatient (RCR) | payer MEDICAID, SELFPAY | END 2024-07-12 23:59 | disposition home or self-care (01) | LOC: SPT 06:30 | PROVIDERS: PCP Pediatrics; Visit Provider Nurse Practitioner Family | DX: M54.50 Low back pain, unspecified (principal); G89.29 Other chronic pain | CPT/HCPCS: 97110 ==

== ENCOUNTER 2024-08-25 20:34 | Emergency (ER) | payer SELFPAY ==
[2024-08-25 20:39] VITALS: BP 129/81; PULSE 122; RESP 18; TEMP 5502.2; TEMP 9936; O2SAT 99; BMI 35.4
--- NOTE | 2024-08-25 21:25 | CTR_ITS ---
PROCEDURE INFORMATION: Exam: CT Maxillofacial With Contrast Exam date and time: 08/25/2024 9:58 PM Age: 18 years old Clinical indication: Face pain and jaw pain; C/O worsening left facial pain since being diagnosed with ear infection yesterday. ; Additional info: Left mastoid pain, dx ear infection TECHNIQUE: Imaging protocol: Computed tomography of the face with contrast. Radiation optimization: All CT scans at this facility use at least one of these dose optimization techniques: automated exposure control; mA and/or kV adjustment per patient size (includes targeted exams where dose is matched to clinical indication); or iterative reconstruction. Contrast material: OMNI 350; Contrast volume: 100 ml; Contrast route: INTRAVENOUS (IV); COMPARISON: CR XR cervical spine 3V* [id number] 12/27/2022 12:56 PM RADIATION DOSE METRICS: Total DLP (mGy-cm): 646.98 FINDINGS: Paranasal sinuses: No air-fluid levels. Orbital cavities: Orbits are normal. Globes are unremarkable. Auditory system: Thickening of the left external auditory canal tissues with enhancement. Left middle ear cavity is partially opacified inferiorly. The ossicles are unremarkable. Severe narrowing of the left external auditory canal. Bones: Unremarkable. Soft tissues: Unremarkable. CT/CT facial bones w con [id number] IMPRESSION: 1. Left otitis externa. 2. Left otitis media versus middle ear effusion. 3. Negative for mastoiditis.
--- NOTE | 2024-08-25 21:27 | W.ED.EAR ---
Documented by User: SILVIA Fry 08/25/24 23:56 HPI - Ear Problem General: Chief complaint: Ear Stated complaint: left ear infection worse into jaw Time Seen by Provider: 08/25/24 20:49 Source: patient Mode of arrival: ambulatory Limitations: no limitations History of Present Illness: Patient is a 18-year-old female presents the emergency department complaining of worsening left ear pain. Patient was diagnosed with ear infection yesterday urgent care started on amoxicillin. Patient states she has taken 3 doses but has had worsening pain that is now radiating to the posterior ear and down her neck. States she has been running fevers as well, took ibuprofen last this morning and her milligrams at 0930. Reporting severe 10/10 pain at this time, worse with chewing. MD Complaint: ear pain Location: left ear Duration: constant Severity: severe Relieving factors: nothing Exacerbating factors: chewing Discharge from ear: no Associated symptoms: Reports ear or mastoid pain, fever(s) and neck pain; Denies headache(s) Treatment prior to arrival: oral analgesic Related Data Home Medications ?Medication ?Instructions ?Recorded ?Confirmed sertraline 50 mg tablet (Zoloft) 50 mg PO DAILY 08/20/23 06/28/24 Previous Rx's ?Medication ?Instructions ?Recorded hydrocodone 5 mg-acetaminophen 325 1 tab PO Q6H PRN pain #14 tabs 18/ mg tablet ondansetron 4 mg disintegrating 4 mg PO Q6H PRN nausea and 05/01/24 tablet vomiting #14 tabs guaifenesin 400 mg tablet 400 mg PO Q4H PRN nasal congestion 06/28/24 #20 tabs ciprofloxacin 0.3 %-dexamethasone 4 drp otic (ear) BID 7 days #7.5 mL 08/25/24 0.1 % ear drops,suspension Allergies Allergy/AdvReac Type Severity Reaction Status Date / Time No Known Allergies Allergy Verified 06/28/24 08:45 Review of Systems General: Reports: 10 or more systems reviewed and unremarkable except in HPI and below Const: Reports: fever(s); Denies: chills or fatigue Eyes: Denies: change in vision ENMT: Reports: ear or mastoid pain and sinus pain; Denies: ear discharge Card: Denies: chest pain, palpitations, swelling of feet/ankles or lightheadedness Resp: Denies: dyspnea, productive cough or wheezing GI: Denies: abdominal pain, nausea, vomiting, diarrhea or constipation Musc: Reports: neck pain; Denies: back pain or joint pain Skin/Breast: Denies: rash Neuro: Denies: headache(s), numbness in extremities or weakness in extremities PFS ED PFSH: Medical History Nasal sinus congestion Anxiety She did not do well on several anxiety meds, so just stopped. She manages this on her own. No pertinent past medical history neghx: htn,dm,thyroid,dvt/pe PCP: Jay Harley NP Depression was managed with medication; came off the meds in 02/2020. Surgical History No pertinent past surgical history Family History Grandmother Breast cancer PGM--unknown age of dx Diabetes maternal grandmother Other Cancer Denies family history of Colon cancer Pancreatic cancer Ovarian cancer Hypertension Uterine cancer Thyroid disease Stroke Social History Smoking and tobacco/nicotine status: never used tobacco/nicotine Substance/Drug Use: never Physical Exam Const: COMMON NORMALS: patient oriented x3, no limitations and alert GENERAL APPEARANCE: cooperative ORIENTATION/CONSCIOUSNESS: Yes awake OTHER: In distress from pain HENMT: COMMON NORMALS: normocephalic, atraumatic, moist oral mucous membranes and oropharynx normal HEAD & SCALP: normocephalic and atraumatic TYMPANIC MEMBRANE: TM abnormal TM laterality: left Details: erythematous OTHER: Pain with manipulation of the left pinna, there is tenderness to palpation of the left mastoid bone Neck/C-Spine: COMMON NORMALS: full ROM, no lymphadenopathy, supple and no meningeal signs Resp: COMMON NORMALS: normal respiratory effort, No retractions, No use of accessory muscles and clear to auscultation bilaterally AUSCULTATION: clear to auscultation bilaterally Cardio: COMMON NORMALS: regular rate, regular rhythm, S1 normal heart sound present and S2 normal heart sound present RATE: regular rate RHYTHM: regular rhythm HEART SOUNDS: S1 normal heart sound present and S2 normal heart sound present Extremity: COMMON NORMALS: normal to inspection and full ROM Neuro: COMMON NORMALS: patient oriented x3, moves all extremities, no focal motor deficits and no sensory deficits noted SENSORIUM/ORIENTATION: Yes alert MENINGEAL SIGNS: Yes no meningeal signs Skin: COMMON NORMALS: no rashes or lesions noted GENERAL SKIN EXAM: no rashes or lesions noted Course Vital Signs: Vital signs: Vital Signs Temperature 9936 F H 08/25/24 20:39 Pulse Rate 111 H 08/25/24 23:27 Respiratory Rate 18 08/25/24 20:39 Blood Pressure 141/87 08/25/24 23:27 Pulse Oximetry 96 08/25/24 23:27 Oxygen Delivery Me thod Room Air 08/25/24 21:42 MDM - Ear Medical Decision Making Patient diagnosed with otitis media yesterday, started on amoxicillin. Pain had been worsening, noting pain to posterior ear. There was tenderness to the mastoid on exam. Labs obtained were unremarkable. CT negative for mastoiditis but did show otitis externa for which we will start with Ciprodex. Have her continue taking amoxicillin and follow-up with regular doctor routinely. She notes significant improvement after receiving IV steroids here. Lab Data 08/25/24 21:25 08/25/24: Radiology Impressions Face CT 08/25/24: IMPRESSION: 1. Left otitis externa. 2. Left otitis media versus middle ear effusion. 3. Negative for mastoiditis. Laboratory Results WBC 11.37 10^3/uL (4.5-13.0) 08/25/24: RBC 4.95 10^6/uL (3.85-5.65) 08/25/24: Hgb 13.30 g/dL (12.4-14.8) 08/25/24: Hct 42.1 % (36-47) 08/25/24: MCV 85.1 fl (85-98) 08/25/24: MCH 26.9 pg (27-33) L 08/25/24: MCHC 31.6 g/dL (30-55) 08/25/24: RDW 14.9 % (12.1-15.1) 08/25/24: Plt Count 223 10^3/cmm (157-399) 08/25/24: MPV 10.9 fL (7.4-10.4) H 08/25/24: Neut % (Auto) 70.1 % 08/25/24: Lymph % (Auto) 16.4 % 08/25/24: Lewis % (Auto) 11.5 % 08/25/24: Eos % (Auto) 1.0 % 08/25/24: Baso % (Auto) 0.5 % 08/25/24: Neut # (Auto) 7.97 10^3/uL (1.8-8.0) 08/25/24: Lymph # (Auto) 1.9 10^3/uL (1.5-6.5) 08/25/24: Lewis # (Auto) 1.3 10^3/uL (0.2-0.9) H 08/25/24: Eos # (Auto) 0.1 10^3/uL (0.0-0.8) 08/25/24: Baso # (Auto) 0.1 10^3/uL (0.0-0.1) 08/25/24: Nucleated RBC % (auto) 0 % 08/25/24 Nucleated RBCs # 0.0 /100WBC 08/25/24: Sodium 139 mmol/L (136-145) 08/25/24: Potassium 4.0 mmol/L (3.5-5.1) 08/25/24: Chloride 103 mmol/L (98-107) 08/25/24: Carbon Dioxide 23 mmol/L (22-29) 08/25/24: Anion Gap 17.0 (5-19) 08/25/24: BUN 6 mg/dL (6-20) 08/25/24: Creatinine 0.7 mg/dL (0.5-0.9) 08/25/24: GFR Calculation 106.7 mL/min (90-130) 08/25/24: Glucose 109 mg/dL (65-115) 08/25/24: Calculated Osmolality 286 mOsm/kg (285-295) 08/25/24 21:25 Lactic Acid 1.8 mmol/L (0.5-2.2) 08/25/24 22:10 Calcium 8.9 mg/dL (8.5-10.5) 08/25/24: Total Bilirubin 0.3 mg/dL (0.15-1.2) 08/25/24 21:25 AST 15 U/L (0-32) 08/25/24: ALT 18 U/L (0-33) 08/25/24 21: Alkaline Phosphatase 122 U/L (35-105) H 08/25/24 21: C-Reactive Protein 36.7 mg/L (0.0-4.9) H 08/25/24: Total Protein 7.8 g/dL (6.6-8.7) 08/25/24 21: Albumin 4.0 g/dL (3.5-5.2) 08/25/24: Globulin 3.8 g/dL (1.3-4.6) 08/25/24 21:25 All radiology interpretation(s) finalized by discharge Discharge Plan Discharge Patient Disposition: Home Clinical Impression: Otitis media Qualifiers: Otitis media type: suppurative Chronicity: acute Laterality: left Recurrence: not specified as recurrent Spontaneous tympanic membrane rupture: without spontaneous rupture Qualified Code(s): H66.002 - Acute suppurative otitis media without spontaneous rupture of ear drum, left ear Otitis externa Qualifiers: Otitis externa type: diffuse Chronicity: acute Laterality: left Qualified Code(s): H60.312 - Diffuse otitis externa, left ear Condition: Stable Prescriptions: New ciprofloxacin-dexamethasone 0.3-0.1 % drops,suspension 4 drp otic (ear) BID 7 Days Qty: 7.5 0RF No Action sertraline [Zoloft] 50 mg tablet 50 mg PO DAILY guaifenesin 400 mg tablet 400 mg PO Q4H PRN (Reason: nasal congestion) Qty: 20 0RF hydrocodone-acetaminophen 5-325 mg tablet 1 tab PO Q6H PRN (Reason: pain) Qty: 14 0RF ondansetron 4 mg tablet,disintegrating 4 mg PO Q6H PRN (Reason: nausea and vomiting) Qty: 14 0RF Discharge Orders: Discharge ED (Routine); Ordered 08/25/24 Ordered By: Deniz Cardoso Referrals: Marquita MORTON,Anika Chandler MD [Primary Care Provider] - Patient Instructions: Otitis Externa - Adult Activity Restrictions/Additional Instructions: Continue taking the amoxicillin. Start taking Ciprodex as prescribed. Ibuprofen and Tylenol for pain. Drink plenty of fluids. Follow-up with regular doctor and return with any new or worsening. Print Language: British Coding Level of Care Code ED Water Well Driller for Chg Fwd Documented by User: Hossein Pham, DO 08/26/24 01:22 HPI - Ear Problem General: Chief complaint: Ear Stated complaint: left ear infection worse into jaw Time Seen by Provider: 08/25/24 20:49 Related Data Home Medications ?Medication ?Instructions ?Recorded ?Confirmed sertraline 50 mg tablet (Zoloft) 50 mg PO DAILY 08/20/23 06/28/24 Previous Rx's ?Medication ?Instructions ?Recorded hydrocodone 5 mg-acetaminophen 325 1 tab PO Q6H PRN pain #14 tabs 12/18/24 mg tablet ondansetron 4 mg disintegrating 4 mg PO Q6H PRN nausea and /18/24 tablet vomiting #14 tabs guaifenesin 400 mg tablet 400 mg PO Q4H PRN nasal congestion 06/28/24 #20 tabs ciprofloxacin 0.3 %-dexamethasone 4 drp otic (ear) BID 7 days #7.5 mL 08/25/24 0.1 % ear drops,suspension Allergies Allergy/AdvReac Type Severity Reaction Status Date / Time No Known Allergies Allergy Verified 06/28/24 08:45 [facility] ED PFSH: Medical History Nasal sinus congestion Anxiety She did not do well on several anxiety meds, so just stopped. She manages this on her own. No pertinent past medical history neghx: htn,dm,thyroid,dvt/pe PCP: Jay Harley [employer] Depression was managed with medication; came off the meds in 02/2020. Surgical History No pertinent past surgical history Family History Grandmother Breast cancer PGM--unknown age of dx Diabetes maternal grandmother Other Cancer Denies family history of Colon cancer Pancreatic cancer Ovarian cancer Hypertension Uterine cancer Thyroid disease Stroke Social History Smoking and tobacco/nicotine status: never used tobacco/nicotine Substance/Drug Use: never Course Vital Signs: Vital signs: Vital Signs Temperature 9936 F H 08/25/24 20:39 Pulse Rate 111 H 08/25/24 23:27 Respiratory Rate 18 08/25/24 20:39 Blood Pressure 141/87 08/25/24 23:27 Pulse Oximetry 96 08/25/24 23:27 Oxygen Delivery Me thod Room Air 08/25/24 21:42 [facility] - Ear Medical Decision Making Patient diagnosed with otitis media yesterday, started on amoxicillin. Pain had been worsening, noting pain to posterior ear. There was tenderness to the mastoid on exam. Labs obtained were unremarkable. CT negative for mastoiditis but did show otitis externa for which we will start with Ciprodex. Have her continue taking amoxicillin and follow-up with regular doctor routinely. She notes significant improvement after receiving IV steroids here. This patient was originally seen by Mr. Walker PA-C.? I agree with his history, evaluation, and treatment. Lab Data 08/25/24:25 08/25/24: Radiology Impressions Face CT 08/25/24: IMPRESSION: 1. Left otitis externa. 2. Left otitis media versus middle ear effusion. 3. Negative for mastoiditis. Laboratory Results WBC 11.37 10^3/uL (4.5-13.0) 08/25/24 21: RBC 4.95 10^6/uL (3.85-5.65) 08/25/24: Hgb 13.30 g/dL (12.4-14.8) 08/25/24: Hct 42.1 % (36-47) 08/25/24: MCV 85.1 fl (85-98) 08/25/24: MCH 26.9 pg (27-33) L 08/25/24: MCHC 31.6 g/dL (30-55) 08/25/24: RDW 14.9 % (12.1-15.1) 08/25/24: Plt Count 223 10^3/cmm (157-399) 08/25/24: MPV 10.9 fL (7.4-10.4) H 08/25/24: Neut % (Auto) 70.1 % 08/25/24: Lymph % (Auto) 16.4 % 08/25/24 Lewis % (Auto) 11.5 % 08/25/24 Eos % (Auto) 1.0 % 08/25/24 Baso % (Auto) 0.5 % 08/25/24 Neut # (Auto) 7.97 10^3/uL (1.8-8.0) 08/25/24: Lymph # (Auto) 1.9 10^3/uL (1.5-6.5) 08/25/24: Lewis # (Auto) 1.3 10^3/uL (0.2-0.9) H 08/25/24: Eos # (Auto) 0.1 10^3/uL (0.0-0.8) 08/25/24: Baso # (Auto) 0.1 10^3/uL (0.0-0.1) 08/25/24 Nucleated RBC % (auto) 0 % 08/25/24 Nucleated RBCs # 0.0 /100WBC 08/25/24: Sodium 139 mmol/L (136-145) 08/25/24: Potassium 4.0 mmol/L (3.5-5.1) 08/25/24: Chloride 103 mmol/L (98-107) 08/25/24: Carbon Dioxide 23 mmol/L (22-29) 08/25/24: Anion Gap 17.0 (5-19) 08/25/24 21: BUN 6 mg/dL (6-20) 08/25/24 21:25 Creatinine 0.7 mg/dL (0.5-0.9) 08/25/24: GFR Calculation 106.7 mL/min (90-130) 08/25/24 21: Glucose 109 mg/dL (65-115) 08/25/24 21: Calculated Osmolality 286 mOsm/kg (285-295) 08/25/24: Lactic Acid 1.8 mmol/L (0.5-2.2) 08/25/24 22:10 Calcium 8.9 mg/dL (8.5-10.5) 08/25/24: Total Bilirubin 0.3 mg/dL (0.15-1.2) 08/25/24: AST 15 U/L (0-32) 08/25/24: ALT 18 U/L (0-33) 08/25/24 21: Alkaline Phosphatase 122 U/L (35-105) H 08/25/24: C-Reactive Protein 36.7 mg/L (0.0-4.9) H 08/25/24: Total Protein 7.8 g/dL (6.6-8.7) 08/25/24: Albumin 4.0 g/dL (3.5-5.2) 08/25/24: Globulin 3.8 g/dL (1.3-4.6) 08/25/24 21:25 Discharge Plan Discharge Patient Disposition: Home Clinical Impression: Otitis media Qualifiers: Otitis media type: suppurative Chronicity: acute Laterality: left Recurrence: not specified as recurrent Spontaneous tympanic membrane rupture: without spontaneous rupture Qualified Code(s): H66.002 - Acute suppurative otitis media without spontaneous rupture of ear drum, left ear Otitis externa Qualifiers: Otitis externa type: diffuse Chronicity: acute Laterality: left Qualified Code(s): H60.312 - Diffuse otitis externa, left ear Condition: Stable Prescriptions: New ciprofloxacin-dexamethasone 0.3-0.1 % drops,suspension 4 drp otic (ear) BID 7 Days Qty: 7.5 0RF No Action sertraline [Zoloft] 50 mg tablet 50 mg PO DAILY guaifenesin 400 mg tablet 400 mg PO Q4H PRN (Reason: nasal congestion) Qty: 20 0RF hydrocodone-acetaminophen 5-325 mg tablet 1 tab PO Q6H PRN (Reason: pain) Qty: 14 0RF ondansetron 4 mg tablet,disintegrating 4 mg PO Q6H PRN (Reason: nausea and vomiting) Qty: 14 0RF Discharge Orders: Discharge ED (Routine); Ordered 08/25/24 Ordered By: Deniz Cardoso Referrals: Marquita MORTON,Anika Chandler MD [Primary Care Provider] - Patient Instructions: Otitis Externa - Adult Activity Restrictions/Additional Instructions: Continue taking the amoxicillin. Start taking Ciprodex as prescribed. Ibuprofen and Tylenol for pain. Drink plenty of fluids. Follow-up with regular doctor and return with any new or worsening. Print Language: British Coding Level of Care Code ED Water Well Driller for [place] [place]
[2024-08-25] MEDS: dexamethasone 10 mg/mL INJ IVP (21:35)
[2024-08-25 21:42] VITALS: BP 139/84; PULSE 118; O2SAT 96
[2024-08-25] MEDS: iohexol 350 mg/mL 500 mL Btl (per mL) IV (22:06)
[2024-08-25 22:09] LABS: Alanine Aminotransferase 18 U/L (0-33); Alkaline Phosphatase 122 U/L (35-105); Aspartate Amino Transferase 15 U/L (0-32); Blood Urea Nitrogen 6 mg/dL (6-20); C Reactive Protein 36.7 mg/L (0.0-4.9); Calcium 8.9 mg/dL (8.5-10.5); Carbon Dioxide 23 mmol/L (22-29); Chloride 103 mmol/L (98-107); Creatinine Clr Calc Pharmacy 168.5121; Globulin 3.8 g/dL (1.3-4.6); Glomerular Filtration Rate 106.7 mL/min (90-130); Glucose 109 mg/dL (65-115); Osmolality Calculated 286 mOsm/kg (285-295); Sodium 139 mmol/L (136-145); Total Bilirubin 0.3 mg/dL (0.15-1.2); Total Protein 7.8 g/dL (6.6-8.7)
[2024-08-25] MEDS: ketorolac 30 mg/mL INJ IVP (22:10)
[2024-08-25 22:33] LABS: Lactic Sepsis W/Reflex 1.8 mmol/L (0.5-2.2)
[2024-08-25 22:36] LABS: Basophils # 0.1 10^3/uL (0.0-0.1); Basophils % 0.5 %; Eosinophils # 0.1 10^3/uL (0.0-0.8); Hematocrit 42.1 % (36-47); Lymphocytes # 1.9 10^3/uL (1.5-6.5); Lymphocytes % 16.4 %; Mean Corpuscular HGB Conc 31.6 g/dL (30-55); Mean Corpuscular Hemoglobin 26.9 pg (27-33); Mean Corpuscular Volume 85.1 fl (85-98); Mean Platelet Volume 10.9 fL (7.4-10.4); Monocytes # 1.3 10^3/uL (0.2-0.9); Monocytes % 11.5 %; Neutrophils # 7.97 10^3/uL (1.8-8.0); Neutrophils % 70.1 %; Nucleated Red Blood Cells % 0 %; Platelet Count 223 10^3/cmm (157-399); Red Blood Count 4.95 10^6/uL (3.85-5.65); Red Cell Distribution Width 14.9 % (12.1-15.1); White Blood Count 11.37 10^3/uL (4.5-13.0)
[2024-08-25 23:27] VITALS: BP 141/87; PULSE 111; O2SAT 96
== END 2024-08-25 23:28 | disposition home or self-care (01) ==
PROVIDERS: Emergency Provider Physician Assistant; PCP Pediatrics
DX: H66.002 Acute suppurative otitis media without spontaneous rupture of ear drum, left ear (principal); H60.312 Diffuse otitis externa, left ear
CPT/HCPCS: 70487; 80053; 83605; 85025; 86140; 96374; 96375; 99285; J1100; J1885

== ENCOUNTER 2025-03-07 08:38 | Outpatient (CLI) | payer SELFPAY ==
--- NOTE | 2025-03-07 08:46 | US_ITS ---
WS: [id number] US transvaginal [id number] HISTORY: IRREGULAR PERIODS COMPARISON: None available. Uterus: 6.8 cm x 4.1 cm x 3.1 cm. Normal size anteverted uterus. No fibroid or mass. Endometrium: 0.4 cm. Normal endometrium. No mass or increased vascularity. Right ovary: 3.2 cm x 2.2 cm x 3.3 cm. Normal size and vascularity, no cystic or solid masses. Several small ovarian follicles. Left ovary: 2.8 cm x 2.2 cm x 2.1 cm. Normal size and vascularity, no cystic or solid masses. Several small ovarian follicles. No free fluid in the cul-de-sac. US/US transvaginal [id number] IMPRESSION: Normal transvaginal pelvic ultrasound.
== END 2025-03-07 08:39 | disposition home or self-care (01) ==
LOC: RAD 08:39
PROVIDERS: PCP Pediatrics; Visit Provider Family Medicine
DX: N92.6 Irregular menstruation, unspecified (principal)
CPT/HCPCS: 76830

== ENCOUNTER 2025-04-23 18:13 | Emergency (ER) | payer SELFPAY ==
--- NOTE | 2025-04-23 18:16 | ECG_ITS ---
[facility]25[facility]23 Pat Name: Yadi Villa Department: Room: Gender: Female Slope Runner: : 2005 Requested By: Sonali Bowens Order Number: [id number] Naun MD: Denis Gale M.D. Measurements Intervals Odem Rate: 78 P: 12 IL: 145 QRS: 74 QRSD: 85 T: 24 QT: 336 QTc: 385 Interpretive Statements SINUS RHYTHM NONSPECIFIC T-WAVE ABNORMALITY No previous ECG available for comparison Electronically Signed On 04-24-2025 17:26:55 EDUCATION ANALYST by Denis Gale M.D. [email or web address]
[2025-04-23 18:20] VITALS: BP 142/85; PULSE 90; RESP 19; TEMP 36.8; O2SAT 99; BMI 35.2
--- NOTE | 2025-04-23 20:06 | ED_ITS ---
HPI - General Adult 2 General: Chief complaint: General Medical Stated complaint: CP Dizzy N feels like gonna pass out Time Seen by Provider: 04/23/25 20:01 History of Present Illness: 19yo F w/pmhx of anxiety and depression w/cc of dizziness, feeling faint today with standing and exertion. Patient states she also woke up with an 8 out of 10 headache today which was relieved by Excedrin, her headache is now 5 out of 10. It is left-sided and dull. Patient states she was experiencing flashers earlier in the day but denies double vision or loss of vision. Patient states that she feels sensitivity to light and is nauseated but has not vomited. Reports tingling of hands/feet (wrist/ankles distally) but no unilateral or facial numbness/paresthesia. No difficulty w/speech, swallowing, hearing, coordination, focal weakness. Patient states she is also experiencing left-sided chest pressure, 3 out of 10, nonradiating, possibly worsened with movement/exertion. Patient does not have any cardiac history, denies history of DVT/PE, diabetes, hypertension, high cholesterol, syncope with exertion. No fever, runny nose, sore throat, cough/hemptysis, leg edema or asymmetric swelling. Patient is complaining of periumbilical and suprapubic abdominal discomfort but denies urinary symptoms. She denies new pain with intercourse, no new sexual partners (only sexually active w/), LMP was 2 weeks ago. Patient states that she is experiencing bright red blood per rectum which she has been experiencing since she was a child, no change in amount, denies melena, has a history of hemorrhoids. Patient was seen in the emergency department earlier this year for similar complaint but has not had a follow-up colonoscopy or GI evaluation. Related Data Previous Rx's ?Medication ?Instructions ?Recorded prednisone 10 mg tablet 30 mg (3 x 10 mg) PO DAILY 5 days 02/01/25 #15 tabs Allergies Allergy/AdvReac Type Severity Reaction Status Date / Time No Known Allergies Allergy Verified 02/01/25 13:30 [facility] ED 2 [facility]: Medical History (Updated 04/23/25 @ 21:33 by Marii Bender MD) Nasal sinus congestion Anxiety She did not do well on several anxiety meds, so just stopped. She manages this on her own. No pertinent past medical history neghx: htn,dm,thyroid,dvt/pe PCP: Jay Harley NP Depression was managed with medication; came off the meds in 02/2020. Surgical History No pertinent past surgical history Family History Grandmother Breast cancer PGM--unknown age of dx Diabetes maternal grandmother Other Cancer Denies family history of Colon cancer Pancreatic cancer Ovarian cancer Hypertension Uterine cancer Thyroid disease Stroke Social History Smoking and tobacco/nicotine status: never used tobacco/nicotine Substance/Drug Use: never Physical Exam 2 Narrative: EXAM NARRATIVE: Vital signs were reviewed. Patient is alert and oriented. Patient is breathing comfortably, no increased WOB or accessory muscle use. SpO2 is above 95% on RA. Patient has clear lungs b/l, no rhonchi, wheezing or crackles. No hypotension or tachycardia. Abdomen is soft, nondistended and there is some tenderness in the LLQ and suprapubic region. No CVA tenderness w/percussion of the flanks. Patient is moving all extremities, no deformity or gross injury. No lower extremity edema or asymmetry. Neuro: Awake, alert, strength equal bilaterally. No sensory deficit. Able to perform FNF, heel to oliver. CRANIAL NERVES: II: Pupils equal and reactive, III, IV, : EOM intact, no gaze preference or deviation, no nystagmus. V: normal sensation in V1, V2, and V3 segments bilaterally VII: no asymmetry, no nasolabial fold flattening VIII: normal hearing to speech IX, X: normal palatal elevation, no uvular deviation XI: 5/5 head turn and 5/5 shoulder shrug bilaterally XII: midline tongue protrusion Course 2 Vital Signs: Vital signs: Vital Signs Temperature 98.3 F 04/23/25 18:20 Pulse Rate 92 04/23/25 21:07 Respiratory Rate 16 04/23/25 21:07 Blood Pressure 145/77 04/23/25 21:07 Pulse Oximetry 96 04/23/25 21:07 Oxygen Delivery Me thod Room Air 04/23/25 21:07 MDM - General Adult Medical Decision Making Patient is a 19-year-old female with a history of anxiety and depression presents with multiple complaints including moderate headache, dizziness especially with standing, left-sided chest pressure without radiation, possibly exertional, abdominal discomfort, bright red blood per rectum. Differential diagnosis includes but is limited to, tension headache, migraine headache, viral upper respiratory infection, anxiety/depression/panic attack, pneumonia, bronchitis, asthma exacerbation, DVT/PE, upper versus lower GI bleeding, anemia, urinary tract infection, other. On exam she is helically stable and has a nonfocal neurologic exam. Patient was treated with IV fluids, IV Compazine, IV Toradol, p.o. Tylenol. She was evaluate CBC, CMP, troponin, D-dimer, UA and screen. EKG shows sinus rhythm with a heart rate of 78, normal axis, normal intervals, no STEMI. Patient's symptoms have resolved with migraine cocktail. Patient has a normal white blood cell count, she is not anemic, she has a normal troponin and D-dimer, there is no actual electrolyte abnormalities, she has normal kidney function, liver function, UA is not consistent with infection (small amount of contamination but no sx), she is not . Her presentation is not consistent with a medical emergency. After migraine cocktail and fluids, patient is able to ambulate without dizziness, can perform tandem gait and states that symptoms and headache have completely resolved. At this time, patient wishes to go home which is reasonable. Patient was counseled on supportive care at home, given return precautions and discharged in stable condition with recommendation for outpatient follow-up with primary care nurse or doctor. Lab Data 04/23/25 20:49 04/23/25 20:49 Radiology Impressions Chest X-Ray 04/23/25 20:41 IMPRESSION: No acute findings. Laboratory Results WBC 10.23 10^3/uL (3.29-11.43) 04/23/25 20:49 RBC 5.31 10^6/uL (3.85-5.65) 04/23/25 20: Hgb 14.30 g/dL (11.27-16.99) 04/23/25 20:49 Hct 44.2 % (36-47) 04/23/25 20: MCV 83.2 fl (85-98) L 04/23/25 20: MCH 26.9 pg (27-33) L 04/23/25 20:49 MCHC 32.4 g/dL (30-55) 04/23/25 20:49 RDW 14.2 % (12.1-15.1) 04/23/25 20:49 Plt Count 259 10^3/cmm (157-399) 04/23/25 20:49 MPV 10.8 fL (7.4-10.4) H 04/23/25 20:49 Neut % (Auto) 53.2 % 04/23/25 20:49 Lymph % (Auto) 35.3 % 04/23/25 20:49 Banner % (Auto) 8.5 % 04/23/25 20: Eos % (Auto) 2.0 % 04/23/25 20: Baso % (Auto) 0.7 % 04/23/25 20:49 Neut # (Auto) 5.45 10^3/uL (1.8-7.7) 04/23/25 20:49 Lymph # (Auto) 3.6 10^3/uL (0.8-4.8) 04/23/25 20:49 Banner # (Auto) 0.9 10^3/uL (0.2-0.9) 04/23/25 20:49 Eos # (Auto) 0.2 10^3/uL (0.0-0.8) 04/23/25 20:49 Baso # (Auto) 0.1 10^3/uL (0.0-0.1) 04/23/25 20: Nucleated RBC % (auto) 0 % 04/23/25 20: Nucleated RBCs # 0.0 /100WBC 04/23/25 20:49 D-Dimer 0.28 ug/mLFEU (0-0.59) 04/23/25 20:49 Sodium 140 mmol/L (136-145) 04/23/25 20:49 Potassium 4.0 mmol/L (3.5-5.1) 04/23/25 20:49 Chloride 104 mmol/L (98-107) 04/23/25 20:49 Carbon Dioxide 22 mmol/L (22-29) 04/23/25 20:49 Anion Gap 18.0 (5-19) 04/23/25 20:49 BUN 14 mg/dL (6-20) 04/23/25 20:49 Creatinine 0.8 mg/dL (0.5-0.9) 04/23/25 20:49 GFR Calculation 90.5 mL/min (90-130) 04/23/25 20:49 Glucose 89 mg/dL (65-115) 04/23/25 20:49 Calculated Osmolality 290 mOsm/kg (285-295) 04/23/25 20:49 Calcium 9.5 mg/dL (8.5-10.5) 04/23/25 20:49 Total Bilirubin 0.3 mg/dL (0.15-1.2) 04/23/25 20:49 AST 23 U/L (0-32) 04/23/25 20:49 ALT 34 U/L (0-33) H 04/23/25 20:49 Alkaline Phosphatase 126 U/L (35-105) H 04/23/25 20:49 Troponin T Baseline < 6 ng/L (0-10) 04/23/25 20:49 Total Protein 7.9 g/dL (6.6-8.7) 04/23/25 20:49 Albumin 4.6 g/dL (3.5-5.2) 04/23/25 20:49 Globulin 3.3 g/dL (1.3-4.6) 04/23/25 20:49 HCG, Qual Negative (Negative) 04/23/25 20:46 Urine Color Yellow (Yellow) 04/23/25 20:46 Urine Appearance Clear (CLEAR) 04/23/25 20:46 Urine pH 7.0 (5-7) 04/23/25 20:46 Ur Specific [place] 1.021 (1.005-1.030) 04/23/25 20:46 Urine Protein Negative (Negative) 04/23/25 20:46 Urine Glucose (UA) Negative (Normal) 04/23/25 20:46 Urine Ketones Trace (Negative) 04/23/25 20: Urine Blood Negative (Negative) 04/23/25 20:46 Urine Nitrate Negative (Negative) 04/23/25 20:46 Urine Bilirubin Negative (Negative) 04/23/25 20:46 Urine Urobilinogen 1.0 mg/dL (Negative) 04/23/25 20: Ur Leukocyte Esterase 1+ (Negative) A 04/23/25 20:46 Urine RBC 0-2 /hpf (0-2) 04/23/25 20:46 Urine WBC 11-20 /hpf (0-5) H 04/23/25 20:46 Ur Squamous Epith Cells 6-10 /hpf (0-5) 04/23/25 20:46 Amorphous Sediment Not Reportable 04/23/25 20:46 Urine Bacteria Trace /hpf (NONE) 04/23/25 20:46 Hyaline Casts 0.40 /lpf 04/23/25 20:46 All radiology interpretation(s) finalized by discharge EKG Data EKG 1: Interpretation: EKG shows sinus rhythm with a heart rate of 78, normal axis, normal intervals, no STEMI. Computer generated interpretation: Chest X-Ray 04/23/25 20:41 IMPRESSION: No acute findings. Discharge Plan Discharge Patient Disposition: Home Clinical Impression: Migraine headache, Dizziness Condition: Stable Prescriptions: No Action prednisone 10 mg tablet 30 mg PO DAILY 5 Days Qty: 15 0RF Discharge Orders: Discharge ED (Routine); Ordered 04/23/25 Ordered By: Marii Bender Referrals: Marquita MORTON,Anika Chandler MD [Primary Care Provider, Pediatrics] Patient Instructions: Opioid Safety, Pain Management, Patient Portal & Leanna Instructions, Acute Headache (DC), Dizziness Activity Restrictions/Additional Instructions: Please continue to monitor your condition closely at home. Take Ibuprofen 400mg and Tylenol 500-1000mg every six hours for pain and inflammation. If your condition worsens or additional concerns arise, please return promptly to the emergency department for reassessment. Follow up with your primary care doctor in one week. Please discuss colonoscopy and referral to GI with your primary care doctor or nurse given your chronic rectal bleeding. Please understand that while you are young and do not have significant risk factors for cancer, it remains a possibility with rectal bleeding. Discuss further plan of care with your regular doctor. Print Language: Frisian Coding Level of Care Code ED Life Skills Specialist for [facility]
[2025-04-23 20:30] VITALS: BP 128/68; PULSE 91; RESP 17; O2SAT 98
--- NOTE | 2025-04-23 20:41 | XRR_ITS ---
PROCEDURE INFORMATION: Exam: XR Chest Exam date and time: 04/23/2025 8:40 PM Age: 19 years old Clinical indication: Pain; Chest pressure; Additional info: Chest pain TECHNIQUE: Imaging protocol: Radiologic exam of the chest. Views: 1 view. COMPARISON: CR XR chest 1V portable [id number] 07/05/2023 7:36 AM FINDINGS: Lungs: Unremarkable. No consolidation. Pleural spaces: Unremarkable. No pleural effusion. No pneumothorax. Heart/Mediastinum: Unremarkable. No cardiomegaly. Bones/joints: Unremarkable. XR/XR chest 1V portable [id number] IMPRESSION: No acute findings.
[2025-04-23 20:58] LABS: Hematocrit 44.2 % (36-47); Hemoglobin 14.30 g/dL (11.27-16.99); Mean Corpuscular HGB Conc 32.4 g/dL (30-55); Mean Corpuscular Hemoglobin 26.9 pg (27-33); Mean Corpuscular Volume 83.2 fl (85-98); Nucleated Red Blood Cells % 0 %; Platelet Count 259 10^3/cmm (157-399); Red Blood Count 5.31 10^6/uL (3.85-5.65); White Blood Count 10.23 10^3/uL (3.29-11.43)
[2025-04-23 21:05] LABS: Glucose Urine UA Negative (Normal); Nitrate Urine Negative (Negative); Specific Gravity, Urine 1.021 (1.005-1.030)
[2025-04-23 21:07] VITALS: BP 145/77; PULSE 92; RESP 16; O2SAT 96
[2025-04-23 21:07] LABS: HCG Qualitative Urine. Negative (Negative)
[2025-04-23 21:10] LABS: Add Urine Microscopic? YES
[2025-04-23 21:20] LABS: Troponin(5th) Baseline < 6 ng/L (0-10)
[2025-04-23 21:21] LABS: Alanine Aminotransferase 34 U/L (0-33); Albumin Level 4.6 g/dL (3.5-5.2); Alkaline Phosphatase 126 U/L (35-105); Anion Gap 18.0 (5-19); Aspartate Amino Transferase 23 U/L (0-32); Blood Urea Nitrogen 14 mg/dL (6-20); Calcium 9.5 mg/dL (8.5-10.5); Carbon Dioxide 22 mmol/L (22-29); Chloride 104 mmol/L (98-107); Creatinine Clr Calc Pharmacy 150.2358; Globulin 3.3 g/dL (1.3-4.6); Glucose 89 mg/dL (65-115); Osmolality Calculated 290 mOsm/kg (285-295); Potassium 4.0 mmol/L (3.5-5.1); Sodium 140 mmol/L (136-145); Total Protein 7.9 g/dL (6.6-8.7)
== END 2025-04-23 21:41 | disposition home or self-care (01) ==
PROVIDERS: Emergency Provider Emergency Medicine; PCP Pediatrics
DX: G43.909 Migraine, unspecified, not intractable, without status migrainosus (principal); R42 Dizziness and giddiness
CPT/HCPCS: 36415; 71045; 80053; 81001; 81025; 84484; 85025; 85378; 93005; 96374; 96375; 99284; J0780; J1885; J7030; J9999